=== PATIENT | male | born 1985 | race Caucasian/White ===

== ENCOUNTER 2021-06-28 16:27 | Emergency (ER) | payer OTHER ==
[2021-06-28] MEDS ORDERED: ZOLOFT 100MG100 MG PO (16:43)
[2021-06-28] MEDS ORDERED: KLONOPIN 1MG1 MG PO (16:43)
[2021-06-28] MEDS ORDERED: ALPRAZOLAM0.5 MG PO (16:44)
[2021-06-28 17:37] LABS: BASO # 0.03 K/mm3 (0.02-0.10); EOS # 0.03 K/mm3 (0.04-0.40); EOS % 0.7 % (0.0-4.0); HEMATOCRIT 45.9 % (42.0-52.0); HEMOGLOBIN 15.8 g/dL (13.5-18.0); LYMPH# 1.24 K/mm3 (1.50-4.00); MEAN CELL VOLUME 92 fl (78-100); MEAN CORPUSCULAR HEMOGLOBIN 32 pg (27-31); MEAN CORPUSCULAR HGB CONC 34 g/dL (33-37); MEAN PLATELET VOLUME 11.4 fl (7.4-10.4); MONO # 0.24 K/mm3 (0.20-0.80); NEU # 2.67 K/mm3 (1.40-6.50); PLATELET COUNT 220 K/mm3 (130-400); RED BLOOD COUNT 4.97 M/mm3 (4.20-5.60); RED CELL DISTRIBUTION WIDTH 12.6 % (11.5-14.5); WHITE BLOOD COUNT 4.2 K/mm3 (4.8-10.8)
[2021-06-28 17:44] LABS: ALBUMIN 4.8 g/dL (3.5-5.0); POTASSIUM 3.9 mmol/L (3.5-5.1); SODIUM 136 mmol/L (136-145)
[2021-06-28 17:45] LABS: CALCIUM 9.8 mg/dL (8.3-10.5)
[2021-06-28 17:47] LABS: GLUCOSE 93 mg/dL (75-110); TOTAL PROTEIN 8.3 g/dL (6.4-8.3)
[2021-06-28 17:48] LABS: CARBON DIOXIDE 20 mmol/L (22-29); TOTAL BILIRUBIN 0.4 mg/dL (0.2-1.2)
[2021-06-28 17:50] LABS: ALCOHOL IN-HOUSE 213 mg/dL (<10)
[2021-06-28 17:52] LABS: AST-SGOT 41 U/L (5-34)
[2021-06-28 17:54] LABS: ALT/SGPT 46 U/L (0-55)
[2021-06-28 18:12] LABS: ACETAMINOPHEN < 1 ug/mL
[2021-06-29 01:47] VITALS: BP 145/96
== END 2021-06-29 01:47 | disposition home or self-care (01) ==
LOC: ED 16:27
PROVIDERS: Physician Assistant
DX: F32.A Depression, unspecified (principal); F41.9 Anxiety disorder, unspecified; F10.129 Alcohol abuse with intoxication, unspecified; Z20.822 Contact with and (suspected) exposure to COVID-19; Y90.7 Blood alcohol level of 200-239 mg/100 ml; Z79.899 Other long term (current) drug therapy
CPT/HCPCS: J2060; J7030